=== PATIENT | female | born 1930 | race Caucasian/White ===

== ENCOUNTER 2020-08-02 04:27 | Day surgery (SDC) | payer OTHER ==
[2020-08-01 12:08] VITALS: BMI 24.0
[~2020-08-02 04:27] MED LIST: BUPIVACAINE HCL/PF 0.75% 10 ML VIAL NR ONE; IOHEXOL 180 MG/1 ML ML IJ ONE; LIDOCAINE HCL 1% PRESERVATIVE FREE - 30ML VIAL IJ ONE
[2020-08-02] MEDS ORDERED: BUPIVACAINE HCL/PF 0.5% (5MG/ML) 10 ML VIAL ONE (07:45)
[2020-08-02] MEDS ORDERED: BUPIVACAINE HCL/PF 0.75% 10 ML VIAL ONE (07:45)
[2020-08-02] MEDS ORDERED: LIDOCAINE HCL 1% PRESERVATIVE FREE - 30ML VIAL IJ ONE (10:06)
[2020-08-02] MEDS ORDERED: IOHEXOL 180 MG/1 ML ML IJ ONE (10:10)
[2020-08-02] MEDS ORDERED: BUPIVACAINE HCL/PF 0.75% 10 ML VIAL NR ONE (10:12)
[2020-08-02 11:01] VITALS: BP 139/64; PULSE 89; TEMP 98.1
== END 2020-08-02 10:45 | disposition home or self-care (01) ==
LOC: JASU-SURG 04:27
PROVIDERS: ATTEND Pain Medicine Pain Medicine
PROC: BR16YZZ Fluoroscopy of Lumbar Facet Joint(s) using Other Contrast (ICD-10-PCS; 2020-08-02)
PROC: 3E0T3BZ Introduction of Anesthetic Agent into Peripheral Nerves and Plexi, Percutaneous Approach (ICD-10-PCS; principal; 2020-08-02 10:30)
DX: M47.816 Spondylosis without myelopathy or radiculopathy, lumbar region (principal)
CPT/HCPCS: 76000-TC-FY

== ENCOUNTER 2020-08-20 05:05 | Day surgery (SDC) | payer OTHER ==
[2020-08-19 15:47] VITALS: BMI 23.0
[2020-08-20 13:11] VITALS: BP 118/73; PULSE 86; TEMP 97.6
== END 2020-08-20 12:30 | disposition home or self-care (01) ==
LOC: JASU-SURG 05:05
PROVIDERS: ATTEND Internal Medicine Hematology & Oncology
PROC: 07BH3ZX Excision of Right Inguinal Lymphatic, Percutaneous Approach, Diagnostic (ICD-10-PCS; principal; 2020-08-20)
DX: C83.35 Diffuse large B-cell lymphoma, lymph nodes of inguinal region and lower limb (principal)
CPT/HCPCS: 38505; 71101-TC-LT-FY; 71101-TC-RT-FY; 76942-TC

== ENCOUNTER 2020-08-23 05:53 | Inpatient (IN) | payer OTHER ==
[2020-08-23] MEDS ORDERED: SODIUM CHLORIDE 0.9% 500 ML INFUS.BAG IV ONE (09:19)
[2020-08-23 09:44] LABS: BASO % 0.3 % (0-2.0); EOS % 0.1 % (0-4.5); HEMATOCRIT 40.6 % (32.4-45.2); HEMOGLOBIN 13.5 GM/dL (10.7-15.3); LYMPH % 4.4 % (8-40); MCH 28.7 pg (25.7-33.7); MCHC 33.3 g/dl (32.0-36.0); MEAN CELL VOLUME 86.1 fl (80-96); MEAN PLT VOLUME 8.5 fl (7.5-11.1); MONO % 4.8 % (3.8-10.2); NEUT % 90.4 % (42.8-82.8); PLATELET COUNT 360 10^3/uL (134-434); RBC 4.72 M/mm3 (3.60-5.2); RDW 14.4 % (11.6-15.6); WHITE BLOOD COUNT 13.7 K/mm3 (4.0-10.0)
[2020-08-23 09:59] LABS: CHLORIDE 101 mmol/L (98-107); SODIUM 140 mmol/L (136-145)
[2020-08-23 10:01] LABS: ALBUMIN 3.3 g/dl (3.4-5.0); ANION GAP 10 MMOL/L (8-16); BLOOD UREA NITROGEN 36.3 mg/dL (7-18); CO2 30 mmol/L (21-32)
[2020-08-23 10:02] LABS: GLUCOSE,RANDOM 112 mg/dL (74-106)
[2020-08-23 10:04] LABS: SGOT/AST 25 U/L (15-37); SGPT/ALT 20 U/L (13-61)
[2020-08-23 10:05] LABS: CREATININE 2.2 mg/dL (0.55-1.3)
[2020-08-23 10:06] LABS: BILIRUBIN,TOTAL 0.9 mg/dL (0.2-1); TOT PROT 7.3 g/dl (6.4-8.2)
[2020-08-23 10:07] LABS: ALK PHOS 94 U/L (45-117)
[2020-08-23 10:17] LABS: CALCIUM 14.6 mg/dL (8.5-10.1)
[2020-08-23 10:41] LABS: URINE APPEARANCE CLEAR; URINE BILIRUBIN NEGATIVE (NEGATIVE); URINE COLOR YELLOW; URINE GLUCOSE (UA) NEGATIVE (NEGATIVE); URINE KETONE 15 mg/dl (NEGATIVE); URINE PROTEIN 1+ (NEGATIVE)
[2020-08-23 10:42] LABS: URINE LEUK ESTERASE 1+ (NEGATIVE); URINE NITRITE NEGATIVE (NEGATIVE)
[2020-08-23] MEDS ORDERED: CEFTRIAXONE 1 GM in DEXTROSE 5%-WATER - 100 ML IVPB ONE (11:06)
[2020-08-23] MEDS ORDERED: FUROSEMIDE 40 MG/4 ML INJECTABLE VIAL IVPUSH ONE (11:19)
[2020-08-23] MEDS ORDERED: SODIUM CHLORIDE 1,000 ML IV ONE ×2 (11:19→11:21)
[2020-08-23] MEDS ORDERED: FUROSEMIDE 40 MG/4 ML INJECTABLE VIAL ONE (11:32)
[2020-08-23] MEDS ORDERED: CEFTRIAXONE 1 GM/50 ML BAG ONE (11:32)
[2020-08-23 11:48] LABS: EPI CELLS 2+ /uL (0-25.1); URINE BACTERIA FEW /uL (0-1359)
[2020-08-23 11:54] LABS: LDH 247 U/L (84-246)
[2020-08-23] MEDS ORDERED: ACETAMINOPHEN 325 MG TABLET (FP) PO PRN (13:49)
[2020-08-23] MEDS ORDERED: HEPARIN NA (PORCINE) 5,000 UNITS/ML 1ML VIAL ONE (15:47)
[2020-08-23] MEDS: HEPARIN NA (PORCINE) 5,000 UNITS/ML 1ML VIAL SQ SCH ×2 (15:59→22:03)
[2020-08-23] MEDS ORDERED: SODIUM CHLORIDE 1,000 ML IV SCH ×2 (16:45→17:56)
[2020-08-23] MEDS ORDERED: QUEtiapine FUMARATE 25 MG TABLET PO ONE (17:05)
[2020-08-23] MEDS ORDERED: QUEtiapine FUMARATE 25 MG TABLET ONE (17:21)
[2020-08-23] MEDS ORDERED: CALCITONIN - SALMON SYNTHETIC 400 UNIT/2 ML VIAL SQ SCH (18:15)
[2020-08-23] MEDS: CALCITONIN - SALMON SYNTHETIC 400 UNIT/2 ML VIAL SQ SCH (19:26)
[2020-08-23] MEDS: ROSUVASTATIN CA 5 MG TABLET (FP) PO SCH (22:03)
[2020-08-23] MEDS: amLODIPine BESYLATE 5 MG TABLET (FP) PO SCH (22:03)
[2020-08-24 00:46] VITALS: BMI 20.5
[2020-08-24] MEDS: CALCITONIN - SALMON SYNTHETIC 400 UNIT/2 ML VIAL SQ SCH ×2 (06:04→17:30)
[2020-08-24] MEDS: HEPARIN NA (PORCINE) 5,000 UNITS/ML 1ML VIAL SQ SCH ×3 (06:04→21:47)
[2020-08-24 07:37] LABS: BASO % 0.5 % (0-2.0); EOS % 1.4 % (0-4.5); HEMOGLOBIN 11.6 GM/dL (10.7-15.3); LYMPH % 7.9 % (8-40); MCH 28.6 pg (25.7-33.7); MEAN CELL VOLUME 86.7 fl (80-96); MEAN PLT VOLUME 9.2 fl (7.5-11.1); MONO % 8.3 % (3.8-10.2); NEUT % 81.9 % (42.8-82.8); PLATELET COUNT 318 10^3/uL (134-434); RBC 4.04 M/mm3 (3.60-5.2); RDW 14.4 % (11.6-15.6); WHITE BLOOD COUNT 7.3 K/mm3 (4.0-10.0)
[2020-08-24 07:49] LABS: CHLORIDE 108 mmol/L (98-107); SODIUM 144 mmol/L (136-145)
[2020-08-24 07:58] LABS: ANION GAP 7 MMOL/L (8-16); BILIRUBIN,TOTAL 0.3 mg/dL (0.2-1); BLOOD UREA NITROGEN 26.9 mg/dL (7-18); CO2 30 mmol/L (21-32); GLUCOSE,RANDOM 88 mg/dL (74-106)
[2020-08-24 07:59] LABS: ALK PHOS 67 U/L (45-117)
[2020-08-24 08:00] LABS: HDL CHOLESTEROL 46 mg/dL (40-60); PHOSPHOROUS 2.6 mg/dL (2.5-4.9); SGOT/AST 19 U/L (15-37); SGPT/ALT 13 U/L (13-61); TRIGLYCERIDES 141 mg/dL (0-150)
[2020-08-24 08:01] LABS: CHOLESTEROL 143 mg/dL (50-200); CREATININE 1.6 mg/dL (0.55-1.3); LDL CHOLESTEROL (ONLY SJRH) 73 mg/dL (5-100); TOT PROT 5.5 g/dl (6.4-8.2)
[2020-08-24 08:23] LABS: ALBUMIN 2.5 g/dl (3.4-5.0); CALCIUM 11.6 mg/dL (8.5-10.1)
[2020-08-24] MEDS ORDERED: CALCITONIN - SALMON SYNTHETIC 400 UNIT/2 ML VIAL SQ SCH ×2 (10:30→19:30)
[2020-08-24] MEDS ORDERED: PT OWN MED DRAWER 7, Y5N ONE (16:38)
[2020-08-24] MEDS: DONEPEZIL HCL 5 MG TABLET (FP) PO SCH (17:30)
[2020-08-24] MEDS: ROSUVASTATIN CA 5 MG TABLET (FP) PO SCH (21:47)
[2020-08-24] MEDS: amLODIPine BESYLATE 5 MG TABLET (FP) PO SCH (21:47)
[2020-08-25] MEDS ORDERED: PT OWN MED DRAWER 7, Y5N ONE (05:38)
[2020-08-25] MEDS: HEPARIN NA (PORCINE) 5,000 UNITS/ML 1ML VIAL SQ SCH ×3 (06:14→21:14)
[2020-08-25] MEDS: CALCITONIN - SALMON SYNTHETIC 400 UNIT/2 ML VIAL SQ SCH (06:46)
[2020-08-25] MEDS: DONEPEZIL HCL 5 MG TABLET (FP) PO SCH (17:31)
[2020-08-25] MEDS: amLODIPine BESYLATE 5 MG TABLET (FP) PO SCH (21:14)
[2020-08-25] MEDS: ROSUVASTATIN CA 5 MG TABLET (FP) PO SCH (21:14)
[2020-08-26] MEDS: HEPARIN NA (PORCINE) 5,000 UNITS/ML 1ML VIAL SQ SCH ×3 (05:57→21:15)
[2020-08-26 07:14] LABS: BASO % 0.4 % (0-2.0); EOS % 1.1 % (0-4.5); HEMOGLOBIN 12.7 GM/dL (10.7-15.3); LYMPH % 8.7 % (8-40); MCH 28.8 pg (25.7-33.7); MCHC 33.4 g/dl (32.0-36.0); MEAN CELL VOLUME 86.2 fl (80-96); MEAN PLT VOLUME 8.5 fl (7.5-11.1); MONO % 7.2 % (3.8-10.2); NEUT % 82.6 % (42.8-82.8); PLATELET COUNT 370 10^3/uL (134-434); RBC 4.41 M/mm3 (3.60-5.2); RDW 14.1 % (11.6-15.6); WHITE BLOOD COUNT 9.4 K/mm3 (4.0-10.0)
[2020-08-26 07:33] LABS: CALCIUM 11.2 mg/dL (8.5-10.1)
[2020-08-26 07:34] LABS: ALBUMIN 2.6 g/dl (3.4-5.0); BLOOD UREA NITROGEN 15.7 mg/dL (7-18)
[2020-08-26 07:37] LABS: CREATININE 1.2 mg/dL (0.55-1.3)
[2020-08-26 07:38] LABS: BILIRUBIN,TOTAL 0.3 mg/dL (0.2-1)
[2020-08-26] MEDS: ALLOPURINOL 300 MG TABLET (FP) PO SCH (17:06)
[2020-08-26] MEDS: DONEPEZIL HCL 5 MG TABLET (FP) PO SCH (17:07)
[2020-08-26] MEDS ORDERED: ZOLEDRONIC ACID 4 MG in SODIUM CHLORIDE 100 ML IVPB ONE (18:15)
[2020-08-26] MEDS: amLODIPine BESYLATE 5 MG TABLET (FP) PO SCH (21:16)
[2020-08-26] MEDS: ROSUVASTATIN CA 5 MG TABLET (FP) PO SCH (21:16)
[2020-08-27] MEDS: HEPARIN NA (PORCINE) 5,000 UNITS/ML 1ML VIAL SQ SCH ×3 (06:16→21:42)
[2020-08-27 07:23] LABS: ALBUMIN 2.6 g/dl (3.4-5.0); CALCIUM 11.5 mg/dL (8.5-10.1)
[2020-08-27 07:24] LABS: BLOOD UREA NITROGEN 13.2 mg/dL (7-18)
[2020-08-27 07:27] LABS: CREATININE 1.1 mg/dL (0.55-1.3)
[2020-08-27 07:28] LABS: BILIRUBIN,TOTAL 0.3 mg/dL (0.2-1); TOT PROT 5.8 g/dl (6.4-8.2)
[2020-08-27] MEDS ORDERED: POTASSIUM CHLORIDE TABS 20 MEQ TABLET.ER (FP) PO ONE (08:00)
[2020-08-27] MEDS: ALLOPURINOL 300 MG TABLET (FP) PO SCH (10:07)
[2020-08-27] MEDS ORDERED: SODIUM CHLORIDE 1,000 ML IV SCH (14:15)
[2020-08-27] MEDS: DONEPEZIL HCL 5 MG TABLET (FP) PO SCH (17:48)
[2020-08-27] MEDS: amLODIPine BESYLATE 5 MG TABLET (FP) PO SCH (21:42)
[2020-08-27] MEDS: ROSUVASTATIN CA 5 MG TABLET (FP) PO SCH (21:42)
[2020-08-28] MEDS: HEPARIN NA (PORCINE) 5,000 UNITS/ML 1ML VIAL SQ SCH ×3 (05:23→21:49)
[2020-08-28 07:50] LABS: CALCIUM 10.3 mg/dL (8.5-10.1)
[2020-08-28 07:51] LABS: ALBUMIN 2.6 g/dl (3.4-5.0); BLOOD UREA NITROGEN 9.3 mg/dL (7-18); MAGNESIUM 1.7 mg/dL (1.8-2.4)
[2020-08-28 07:54] LABS: CREATININE 1.1 mg/dL (0.55-1.3); URIC ACID 3.8 mg/dL (2.6-7.2)
[2020-08-28 07:55] LABS: BILIRUBIN,TOTAL 0.3 mg/dL (0.2-1)
[2020-08-28 07:56] LABS: TOT PROT 5.6 g/dl (6.4-8.2)
[2020-08-28] MEDS: ALLOPURINOL 300 MG TABLET (FP) PO SCH (09:50)
[2020-08-28] MEDS ORDERED: MAGNESIUM OXIDE 400 MG TABLET (FP) PO ONE (12:24)
[2020-08-28] MEDS: SODIUM CHLORIDE 1,000 ML IV SCH (12:46)
[2020-08-28] MEDS: DONEPEZIL HCL 5 MG TABLET (FP) PO SCH (18:27)
[2020-08-28] MEDS: amLODIPine BESYLATE 5 MG TABLET (FP) PO SCH (21:49)
[2020-08-28] MEDS: ROSUVASTATIN CA 5 MG TABLET (FP) PO SCH (21:49)
[2020-08-29] MEDS: HEPARIN NA (PORCINE) 5,000 UNITS/ML 1ML VIAL SQ SCH ×3 (06:35→21:28)
[2020-08-29 07:41] LABS: ALBUMIN 2.6 g/dl (3.4-5.0); BLOOD UREA NITROGEN 8.6 mg/dL (7-18); CALCIUM 9.9 mg/dL (8.5-10.1)
[2020-08-29 07:43] LABS: CREATININE 1.1 mg/dL (0.55-1.3)
[2020-08-29 07:45] LABS: BILIRUBIN,TOTAL 0.2 mg/dL (0.2-1); TOT PROT 5.6 g/dl (6.4-8.2)
[2020-08-29] MEDS: ALLOPURINOL 300 MG TABLET (FP) PO SCH (10:07)
[2020-08-29] MEDS: AMINO ACIDS/PROTEIN HYDROLYS 30 ML LIQUID.PKT PO SCH ×2 (10:07→18:15)
[2020-08-29] MEDS: MULTIVITAMINS (DAILY MVI) TABLET (FP) PO SCH (10:07)
[2020-08-29] MEDS: SODIUM CHLORIDE 1,000 ML IV SCH ×2 (13:38→18:16)
[2020-08-29] MEDS: DONEPEZIL HCL 5 MG TABLET (FP) PO SCH (18:16)
[2020-08-29] MEDS: amLODIPine BESYLATE 5 MG TABLET (FP) PO SCH (21:29)
[2020-08-29] MEDS: ROSUVASTATIN CA 5 MG TABLET (FP) PO SCH (21:29)
[2020-08-30] MEDS: HEPARIN NA (PORCINE) 5,000 UNITS/ML 1ML VIAL SQ SCH (05:30)
[2020-08-30 09:18] LABS: ALBUMIN 2.5 g/dl (3.4-5.0); CALCIUM 9.2 mg/dL (8.5-10.1)
[2020-08-30 09:19] LABS: BLOOD UREA NITROGEN 14.5 mg/dL (7-18)
[2020-08-30 09:21] LABS: CREATININE 1.1 mg/dL (0.55-1.3)
[2020-08-30 09:23] LABS: BILIRUBIN,TOTAL 0.3 mg/dL (0.2-1)
[2020-08-30 09:24] LABS: TOT PROT 5.4 g/dl (6.4-8.2)
[2020-08-30] MEDS: AMINO ACIDS/PROTEIN HYDROLYS 30 ML LIQUID.PKT PO SCH ×2 (09:52→19:17)
[2020-08-30] MEDS: MULTIVITAMINS (DAILY MVI) TABLET (FP) PO SCH (09:53)
[2020-08-30] MEDS: ALLOPURINOL 300 MG TABLET (FP) PO SCH (09:53)
[2020-08-30] MEDS: SODIUM CHLORIDE 1,000 ML IV SCH ×2 (10:00→20:00)
[2020-08-30] MEDS: DONEPEZIL HCL 5 MG TABLET (FP) PO SCH (19:17)
[2020-08-30] MEDS: ROSUVASTATIN CA 5 MG TABLET (FP) PO SCH (21:09)
[2020-08-30] MEDS: amLODIPine BESYLATE 5 MG TABLET (FP) PO SCH (21:09)
[2020-08-31] MEDS: AMINO ACIDS/PROTEIN HYDROLYS 30 ML LIQUID.PKT PO SCH ×2 (08:18→18:20)
[2020-08-31] MEDS: ALLOPURINOL 300 MG TABLET (FP) PO SCH (09:21)
[2020-08-31] MEDS: MULTIVITAMINS (DAILY MVI) TABLET (FP) PO SCH (09:21)
[2020-08-31] MEDS: DONEPEZIL HCL 5 MG TABLET (FP) PO SCH (18:20)
[2020-08-31] MEDS: SODIUM CHLORIDE 1,000 ML IV SCH (18:21)
[2020-08-31] MEDS: amLODIPine BESYLATE 5 MG TABLET (FP) PO SCH (21:42)
[2020-08-31] MEDS: ROSUVASTATIN CA 5 MG TABLET (FP) PO SCH (21:42)
[2020-09-01 08:16] LABS: BASO % 0.6 % (0-2.0); EOS % 1.2 % (0-4.5); HEMATOCRIT 33.2 % (32.4-45.2); HEMOGLOBIN 11.4 GM/dL (10.7-15.3); LYMPH % 10.8 % (8-40); MCH 29.3 pg (25.7-33.7); MCHC 34.4 g/dl (32.0-36.0); MEAN CELL VOLUME 85.4 fl (80-96); MEAN PLT VOLUME 8.5 fl (7.5-11.1); MONO % 9.3 % (3.8-10.2); NEUT % 78.1 % (42.8-82.8); PLATELET COUNT 314 10^3/uL (134-434); RBC 3.89 M/mm3 (3.60-5.2); RDW 14.9 % (11.6-15.6); WHITE BLOOD COUNT 7.9 K/mm3 (4.0-10.0)
[2020-09-01 08:28] LABS: ALBUMIN 2.5 g/dl (3.4-5.0); BLOOD UREA NITROGEN 19.8 mg/dL (7-18); CALCIUM 9.5 mg/dL (8.5-10.1)
[2020-09-01 08:31] LABS: CREATININE 1.3 mg/dL (0.55-1.3)
[2020-09-01 08:33] LABS: BILIRUBIN,TOTAL 0.2 mg/dL (0.2-1); TOT PROT 5.5 g/dl (6.4-8.2)
[2020-09-01] MEDS: ALLOPURINOL 300 MG TABLET (FP) PO SCH (10:30)
[2020-09-01] MEDS: AMINO ACIDS/PROTEIN HYDROLYS 30 ML LIQUID.PKT PO SCH ×2 (10:30→18:14)
[2020-09-01] MEDS: MULTIVITAMINS (DAILY MVI) TABLET (FP) PO SCH (10:30)
[2020-09-01] MEDS ORDERED: POTASSIUM CHLORIDE TABS 20 MEQ TABLET.ER (FP) PO ONE (12:03)
[2020-09-01] MEDS: SODIUM CHLORIDE 1,000 ML IV SCH (16:45)
[2020-09-01] MEDS: DONEPEZIL HCL 5 MG TABLET (FP) PO SCH (18:14)
[2020-09-01] MEDS: amLODIPine BESYLATE 5 MG TABLET (FP) PO SCH (21:24)
[2020-09-01] MEDS: ROSUVASTATIN CA 5 MG TABLET (FP) PO SCH (21:24)
[2020-09-02] MEDS: SODIUM CHLORIDE 1,000 ML IV SCH ×2 (03:10→18:23)
[2020-09-02 08:07] LABS: BASO % 0.6 % (0-2.0); EOS % 1.5 % (0-4.5); HEMATOCRIT 33.6 % (32.4-45.2); HEMOGLOBIN 11.4 GM/dL (10.7-15.3); LYMPH % 9.9 % (8-40); MCH 29.3 pg (25.7-33.7); MCHC 33.9 g/dl (32.0-36.0); MEAN CELL VOLUME 86.6 fl (80-96); MEAN PLT VOLUME 8.5 fl (7.5-11.1); MONO % 9.3 % (3.8-10.2); NEUT % 78.7 % (42.8-82.8); PLATELET COUNT 348 10^3/uL (134-434); RBC 3.88 M/mm3 (3.60-5.2); WHITE BLOOD COUNT 8.3 K/mm3 (4.0-10.0)
[2020-09-02 08:19] LABS: ALBUMIN 2.5 g/dl (3.4-5.0); BLOOD UREA NITROGEN 16.2 mg/dL (7-18)
[2020-09-02 08:22] LABS: CREATININE 1.3 mg/dL (0.55-1.3)
[2020-09-02 08:23] LABS: BILIRUBIN,TOTAL 0.3 mg/dL (0.2-1); TOT PROT 5.5 g/dl (6.4-8.2)
[2020-09-02] MEDS: AMINO ACIDS/PROTEIN HYDROLYS 30 ML LIQUID.PKT PO SCH ×2 (10:18→18:19)
[2020-09-02] MEDS: MULTIVITAMINS (DAILY MVI) TABLET (FP) PO SCH (10:18)
[2020-09-02] MEDS: ALLOPURINOL 300 MG TABLET (FP) PO SCH (10:18)
[2020-09-02] MEDS ORDERED: PENICILLIN G BENZATHINE 2,400,000 UNIT/4 ML PFS IM ONE (16:01)
[2020-09-02] MEDS: DONEPEZIL HCL 5 MG TABLET (FP) PO SCH (18:19)
[2020-09-02] MEDS ORDERED: ARTIFICIAL TEARS (POLYVINYL ALCOHOL) OPTH DROPS OU PRN (19:24)
[2020-09-02 21:27] LABS: EPI CELLS >36 /uL (0-25.1); HYALINE CASTS 4 /uL (0-3.1); URINE APPEARANCE CLEAR; URINE BACTERIA 33 /uL (0-1359); URINE BILIRUBIN NEGATIVE (NEGATIVE); URINE COLOR YELLOW; URINE GLUCOSE (UA) 1+ (NEGATIVE); URINE KETONE NEGATIVE (NEGATIVE); URINE LEUK ESTERASE NEGATIVE (NEGATIVE); URINE NITRITE NEGATIVE (NEGATIVE); URINE PROTEIN 2+ (NEGATIVE); URINE RBC 37 /uL (0-23.9); URINE WBC 25 /uL (0-25.8)
[2020-09-02] MEDS: ROSUVASTATIN CA 5 MG TABLET (FP) PO SCH (21:29)
[2020-09-02] MEDS: amLODIPine BESYLATE 5 MG TABLET (FP) PO SCH (21:29)
[2020-09-03] MEDS: AMINO ACIDS/PROTEIN HYDROLYS 30 ML LIQUID.PKT PO SCH ×2 (09:41→17:36)
[2020-09-03] MEDS: MULTIVITAMINS (DAILY MVI) TABLET (FP) PO SCH (09:41)
[2020-09-03] MEDS: ALLOPURINOL 300 MG TABLET (FP) PO SCH (09:42)
[2020-09-03] MEDS: SODIUM CHLORIDE 1,000 ML IV SCH (17:35)
[2020-09-03] MEDS: DONEPEZIL HCL 5 MG TABLET (FP) PO SCH (17:36)
[2020-09-03] MEDS: ROSUVASTATIN CA 5 MG TABLET (FP) PO SCH (21:42)
[2020-09-03] MEDS: amLODIPine BESYLATE 5 MG TABLET (FP) PO SCH (21:42)
[2020-09-04] MEDS: MULTIVITAMINS (DAILY MVI) TABLET (FP) PO SCH (09:30)
[2020-09-04] MEDS: AMINO ACIDS/PROTEIN HYDROLYS 30 ML LIQUID.PKT PO SCH ×2 (09:30→17:30)
[2020-09-04] MEDS: ALLOPURINOL 300 MG TABLET (FP) PO SCH (09:30)
[2020-09-04] MEDS: SODIUM CHLORIDE 1,000 ML IV SCH (17:29)
[2020-09-04] MEDS: DONEPEZIL HCL 5 MG TABLET (FP) PO SCH (17:30)
[2020-09-04] MEDS: amLODIPine BESYLATE 5 MG TABLET (FP) PO SCH (21:24)
[2020-09-04] MEDS: ROSUVASTATIN CA 5 MG TABLET (FP) PO SCH (21:24)
[2020-09-05] MEDS: AMINO ACIDS/PROTEIN HYDROLYS 30 ML LIQUID.PKT PO SCH (08:23)
[2020-09-05] MEDS: ALLOPURINOL 300 MG TABLET (FP) PO SCH (09:58)
[2020-09-05] MEDS: MULTIVITAMINS (DAILY MVI) TABLET (FP) PO SCH (09:58)
[2020-09-05 15:02] VITALS: BP 136/72; PULSE 103; TEMP 98.2
== END 2020-09-05 16:48 | disposition home health service (06) | DRG 840 ==
LOC: JER 05:53 → JERBED 13:52 → J4W 21:02
PROVIDERS: ADMIT Internal Medicine; ATTEND Internal Medicine
DX: C85.10 Unspecified B-cell lymphoma, unspecified site (principal); G93.41 Metabolic encephalopathy; E43 Unspecified severe protein-calorie malnutrition; N17.9 Acute kidney failure, unspecified; S80.12XA Contusion of left lower leg, initial encounter; E78.5 Hyperlipidemia, unspecified; R91.8 Other nonspecific abnormal finding of lung field; F03.90 Unspecified dementia, unspecified severity, without behavioral disturbance, psychotic disturbance, mood disturbance, and anxiety; A53.9 Syphilis, unspecified; M47.896 Other spondylosis, lumbar region; W18.30XA Fall on same level, unspecified, initial encounter; S81.811A Laceration without foreign body, right lower leg, initial encounter; E83.52 Hypercalcemia; D72.829 Elevated white blood cell count, unspecified; R41.82 Altered mental status, unspecified; E87.6 Hypokalemia; L89.152 Pressure ulcer of sacral region, stage 2; I12.9 Hypertensive chronic kidney disease with stage 1 through stage 4 chronic kidney disease, or unspecified chronic kidney disease; N18.9 Chronic kidney disease, unspecified; Y92.098 Other place in other non-institutional residence as the place of occurrence of the external cause; Z68.20 Body mass index [BMI] 20.0-20.9, adult
CPT/HCPCS: 36415; 70450-TC; 71045-TC-FY; 72125-TC; 80053; 80061; 81003; 82310; 82550; 83036; 83615; 83721; 83735; 83970; 84100; 84436; 84439; 84484; 84550; 85025; 87086; 93005; 93010; 93306-TC; 97116-GP; 97161-GP; 99285-25; C9803; J1644; J3489; U0003; U0005

== ENCOUNTER 2020-09-10 12:51 | Day surgery (SDC) | payer OTHER ==
[2020-09-10] MEDS ORDERED: D5-1/2NS+20 MEQ KCL - 20 MEQ/1,000 ML INFUS.BAG IV ONE (13:45)
[2020-09-10] MEDS ORDERED: ZOLEDRONIC ACID 3 MG in SODIUM CHLORIDE 100 ML IVPB ONE (13:45)
[2020-09-10 15:05] LABS: BASO % 0.5 % (0-2.0); EOS % 0.6 % (0-4.5); HEMATOCRIT 35.8 % (32.4-45.2); HEMOGLOBIN 11.9 GM/dL (10.7-15.3); MCH 29.3 pg (25.7-33.7); MCHC 33.2 g/dl (32.0-36.0); MEAN CELL VOLUME 88.2 fl (80-96); MEAN PLT VOLUME 9.1 fl (7.5-11.1); NEUT % 83.9 % (42.8-82.8); PLATELET COUNT 364 10^3/uL (134-434); RBC 4.06 M/mm3 (3.60-5.2); RDW 16.1 % (11.6-15.6); WHITE BLOOD COUNT 12.1 K/mm3 (4.0-10.0)
[2020-09-10 15:24] LABS: ALBUMIN 2.9 g/dl (3.4-5.0); BLOOD UREA NITROGEN 16.2 mg/dL (7-18); MAGNESIUM 2.3 mg/dL (1.8-2.4)
[2020-09-10 15:27] LABS: CREATININE 1.9 mg/dL (0.55-1.3)
[2020-09-10 15:28] LABS: BILIRUBIN,TOTAL 0.4 mg/dL (0.2-1)
[2020-09-10 15:29] LABS: TOT PROT 6.6 g/dl (6.4-8.2)
[2020-09-10 15:39] LABS: CALCIUM 11.3 mg/dL (8.5-10.1)
[2020-09-10] MEDS ORDERED: DENOSUMAB 120 MG/1.7 ML VIAL SQ ONE (17:00)
[2020-09-10 18:42] VITALS: TEMP 97.9
[2020-09-10 18:46] VITALS: BP 102/35; PULSE 84
== END 2020-09-10 18:46 | disposition home or self-care (01) ==
LOC: JONCNONCHE 12:51 → JONCCHEMO 12:51
PROVIDERS: ATTEND Internal Medicine Hematology & Oncology
PROC: 3E013GC Introduction of Other Therapeutic Substance into Subcutaneous Tissue, Percutaneous Approach (ICD-10-PCS; principal; 2020-09-10)
PROC: 3E0337Z Introduction of Electrolytic and Water Balance Substance into Peripheral Vein, Percutaneous Approach (ICD-10-PCS; 2020-09-10)
DX: C83.38 Diffuse large B-cell lymphoma, lymph nodes of multiple sites (principal); Z76.89 Persons encountering health services in other specified circumstances
CPT/HCPCS: 36415; 80053; 83735; 85025; 96360; 96361; 96372; J0897

== ENCOUNTER 2020-09-11 09:02 | Day surgery (SDC) | payer OTHER ==
[2020-09-11] MEDS ORDERED: D5-1/2NS+20 MEQ KCL - 20 MEQ/1,000 ML INFUS.BAG IV ONE (09:45)
[2020-09-11 12:47] LABS: CALCIUM 11.2 mg/dL (8.5-10.1); MAGNESIUM 2.1 mg/dL (1.8-2.4)
[2020-09-11 12:48] LABS: ALBUMIN 2.8 g/dl (3.4-5.0); BLOOD UREA NITROGEN 13.7 mg/dL (7-18)
[2020-09-11 12:49] LABS: URIC ACID 1.7 mg/dL (2.6-7.2)
[2020-09-11 12:50] LABS: CREATININE 1.8 mg/dL (0.55-1.3)
[2020-09-11 12:51] LABS: PHOSPHOROUS 2.1 mg/dL (2.5-4.9)
[2020-09-11 12:53] LABS: BILIRUBIN,TOTAL 0.4 mg/dL (0.2-1)
[2020-09-11 12:54] LABS: TOT PROT 6.2 g/dl (6.4-8.2)
[2020-09-11 16:44] VITALS: TEMP 98.5
[2020-09-11 16:46] VITALS: BP 113/49; PULSE 92
== END 2020-09-11 16:10 | disposition home or self-care (01) ==
LOC: JONCCHEMO 09:02
PROVIDERS: ATTEND Internal Medicine Hematology & Oncology
PROC: 3E0337Z Introduction of Electrolytic and Water Balance Substance into Peripheral Vein, Percutaneous Approach (ICD-10-PCS; principal; 2020-09-11)
DX: C83.38 Diffuse large B-cell lymphoma, lymph nodes of multiple sites (principal); Z76.89 Persons encountering health services in other specified circumstances
CPT/HCPCS: 36415; 80053; 83615; 83735; 84100; 84550; 96360; 96361

== ENCOUNTER 2020-09-16 13:17 | Inpatient (IN) | payer OTHER ==
[2020-09-16] MEDS ORDERED: SODIUM CHLORIDE 0.9% 1000 ML INFUS.BAG IV ONE (16:19)
[2020-09-16] MEDS ORDERED: ACETAMINOPHEN 1000 MG/100 ML VIAL (NON FORMULARY) IVPB ONE (16:19)
[2020-09-16] MEDS ORDERED: ACETAMINOPHEN INJECTION 100 ML IVPB ONE (16:23)
[2020-09-16 16:43] LABS: BASO % 0.5 % (0-2.0); EOS % 1.9 % (0-4.5); HEMOGLOBIN 12.3 GM/dL (10.7-15.3); LYMPH % 6.4 % (8-40); MCH 29.4 pg (25.7-33.7); MCHC 34.1 g/dl (32.0-36.0); MEAN CELL VOLUME 86.3 fl (80-96); MEAN PLT VOLUME 9.1 fl (7.5-11.1); MONO % 6.1 % (3.8-10.2); NEUT % 85.1 % (42.8-82.8); PLATELET COUNT 360 10^3/uL (134-434); RBC 4.18 M/mm3 (3.60-5.2); WHITE BLOOD COUNT 10.2 K/mm3 (4.0-10.0)
[2020-09-16 17:04] LABS: CHLORIDE 101 mmol/L (98-107); SODIUM 140 mmol/L (136-145)
[2020-09-16 17:05] LABS: ALBUMIN 2.7 g/dl (3.4-5.0); ANION GAP 8 MMOL/L (8-16); BLOOD UREA NITROGEN 18.6 mg/dL (7-18); CALCIUM 11.1 mg/dL (8.5-10.1); CO2 30 mmol/L (21-32)
[2020-09-16 17:06] LABS: GLUCOSE,RANDOM 90 mg/dL (74-106)
[2020-09-16 17:09] LABS: CREATININE 1.7 mg/dL (0.55-1.3); SGOT/AST 27 U/L (15-37); SGPT/ALT 13 U/L (13-61)
[2020-09-16 17:10] LABS: BILIRUBIN,TOTAL 0.5 mg/dL (0.2-1); TOT PROT 6.1 g/dl (6.4-8.2)
[2020-09-16 17:12] LABS: ALK PHOS 79 U/L (45-117)
[2020-09-16 18:40] LABS: EPI CELLS 20 /uL (0-25.1); HYALINE CASTS 6 /uL (0-3.1); PH,URINE 6.5 (5.0-8.0); URINE APPEARANCE CLEAR; URINE BACTERIA 13 /uL (0-1359); URINE BILIRUBIN NEGATIVE (NEGATIVE); URINE COLOR YELLOW; URINE GLUCOSE (UA) NEGATIVE (NEGATIVE); URINE KETONE TRACE (NEGATIVE); URINE LEUK ESTERASE NEGATIVE (NEGATIVE); URINE NITRITE NEGATIVE (NEGATIVE); URINE PROTEIN 2+ (NEGATIVE); URINE WBC 8 /uL (0-25.8)
[2020-09-16] MEDS ORDERED: DEXTROSE 5%-0.45% SALINE 1,000 ML IV SCH (22:45)
[2020-09-17 00:54] VITALS: BMI 22.4
[2020-09-17 08:25] LABS: BASO % 0.4 % (0-2.0); EOS % 3.8 % (0-4.5); HEMATOCRIT 33.2 % (32.4-45.2); HEMOGLOBIN 11.3 GM/dL (10.7-15.3); LYMPH % 5.7 % (8-40); MCH 29.3 pg (25.7-33.7); MEAN PLT VOLUME 8.2 fl (7.5-11.1); MONO % 6.3 % (3.8-10.2); NEUT % 83.8 % (42.8-82.8); PLATELET COUNT 323 10^3/uL (134-434); RBC 3.86 M/mm3 (3.60-5.2); RDW 15.3 % (11.6-15.6); WHITE BLOOD COUNT 8.9 K/mm3 (4.0-10.0)
[2020-09-17 08:35] LABS: CHLORIDE 105 mmol/L (98-107); SODIUM 139 mmol/L (136-145)
[2020-09-17 08:41] LABS: ALBUMIN 2.3 g/dl (3.4-5.0); ANION GAP 5 MMOL/L (8-16); BLOOD UREA NITROGEN 16.7 mg/dL (7-18); CO2 29 mmol/L (21-32); GLUCOSE,RANDOM 111 mg/dL (74-106)
[2020-09-17 08:44] LABS: SGOT/AST 15 U/L (15-37); SGPT/ALT 11 U/L (13-61)
[2020-09-17 08:45] LABS: BILIRUBIN,TOTAL 0.3 mg/dL (0.2-1); CREATININE 1.6 mg/dL (0.55-1.3); TOT PROT 5.2 g/dl (6.4-8.2)
[2020-09-17 08:46] LABS: ALK PHOS 64 U/L (45-117)
[2020-09-17] MEDS: ALLOPURINOL 300 MG TABLET (FP) PO SCH (10:53)
[2020-09-17] MEDS: methylPREDNISolone NA SUCC 40 MG/1 ML VIAL IVPUSH SCH ×2 (10:53→20:50)
[2020-09-17] MEDS: DONEPEZIL HCL 5 MG TABLET (FP) PO SCH (10:54)
[2020-09-17] MEDS ORDERED: SODIUM CHLORIDE 1,000 ML IV SCH (14:45)
[2020-09-17] MEDS: ENOXAPARIN NA (PORCINE) 30 MG/0.3 ML DISP.SYRIN SQ SCH (20:50)
[2020-09-17] MEDS: amLODIPine BESYLATE 2.5 MG TABLET (FP) PO SCH ×2 (21:22→21:27)
[2020-09-17] MEDS: GABAPENTIN 300 MG CAPSULE PO SCH (21:22)
[2020-09-17] MEDS: INSULIN SLIDING SCALE (NOVOLOG) 1 VIAL SQ SCH (21:22)
[2020-09-17] MEDS: ROSUVASTATIN CA 5 MG TABLET (FP) PO SCH (21:22)
[2020-09-18] MEDS: methylPREDNISolone NA SUCC 40 MG/1 ML VIAL IVPUSH SCH ×3 (02:15→17:05)
[2020-09-18] MEDS: INSULIN SLIDING SCALE (NOVOLOG) 1 VIAL SQ SCH ×4 (06:22→22:02)
[2020-09-18] MEDS: ENOXAPARIN NA (PORCINE) 30 MG/0.3 ML DISP.SYRIN SQ SCH (09:44)
[2020-09-18] MEDS: DONEPEZIL HCL 5 MG TABLET (FP) PO SCH (09:45)
[2020-09-18] MEDS: ALLOPURINOL 300 MG TABLET (FP) PO SCH (09:45)
[2020-09-18] MEDS: diphenhydrAMINE HCL 25 MG CAPSULE (FP) PO PRN (15:13)
[2020-09-18] MEDS: GABAPENTIN 300 MG CAPSULE PO SCH (21:23)
[2020-09-18] MEDS: ROSUVASTATIN CA 5 MG TABLET (FP) PO SCH (21:23)
[2020-09-18] MEDS: amLODIPine BESYLATE 2.5 MG TABLET (FP) PO SCH (21:23)
[2020-09-19] MEDS: methylPREDNISolone NA SUCC 40 MG/1 ML VIAL IVPUSH SCH ×4 (02:01→21:35)
[2020-09-19] MEDS: INSULIN SLIDING SCALE (NOVOLOG) 1 VIAL SQ SCH ×4 (06:04→21:34)
[2020-09-19 07:51] LABS: BASO % 0.2 % (0-2.0); HEMATOCRIT 34.2 % (32.4-45.2); HEMOGLOBIN 11.4 GM/dL (10.7-15.3); LYMPH % 4.4 % (8-40); MCH 28.9 pg (25.7-33.7); MCHC 33.4 g/dl (32.0-36.0); MEAN CELL VOLUME 86.4 fl (80-96); MEAN PLT VOLUME 8.6 fl (7.5-11.1); MONO % 1.8 % (3.8-10.2); NEUT % 93.6 % (42.8-82.8); PLATELET COUNT 405 10^3/uL (134-434); RBC 3.96 M/mm3 (3.60-5.2); RDW 15.8 % (11.6-15.6); WHITE BLOOD COUNT 21.3 K/mm3 (4.0-10.0)
[2020-09-19 08:02] LABS: ALBUMIN 2.5 g/dl (3.4-5.0); BLOOD UREA NITROGEN 20.2 mg/dL (7-18); CALCIUM 9.7 mg/dL (8.5-10.1)
[2020-09-19 08:05] LABS: CREATININE 1.5 mg/dL (0.55-1.3)
[2020-09-19 08:06] LABS: BILIRUBIN,TOTAL 0.2 mg/dL (0.2-1); TOT PROT 5.6 g/dl (6.4-8.2)
[2020-09-19 10:08] LABS: PLATELET ESTIMATE ADEQUATE
[2020-09-19] MEDS: ENOXAPARIN NA (PORCINE) 30 MG/0.3 ML DISP.SYRIN SQ SCH (10:34)
[2020-09-19] MEDS: ALLOPURINOL 300 MG TABLET (FP) PO SCH (10:34)
[2020-09-19] MEDS: DONEPEZIL HCL 5 MG TABLET (FP) PO SCH (10:34)
[2020-09-19] MEDS: diphenhydrAMINE HCL 25 MG CAPSULE (FP) PO PRN ×2 (13:44→21:33)
[2020-09-19] MEDS ORDERED: SODIUM CHLORIDE 0.45% 1,000 ML IV SCH (15:15)
[2020-09-19] MEDS ORDERED: INSULIN (NOVOLOG) ASPART 100 UNITS/ML 10ML VIAL ONE (20:48)
[2020-09-19] MEDS: GABAPENTIN 300 MG CAPSULE PO SCH (21:33)
[2020-09-19] MEDS: amLODIPine BESYLATE 2.5 MG TABLET (FP) PO SCH (21:33)
[2020-09-19] MEDS: ROSUVASTATIN CA 5 MG TABLET (FP) PO SCH (21:33)
[2020-09-20] MEDS: INSULIN SLIDING SCALE (NOVOLOG) 1 VIAL SQ SCH ×4 (06:06→21:57)
[2020-09-20] MEDS: ALLOPURINOL 300 MG TABLET (FP) PO SCH (09:37)
[2020-09-20] MEDS: methylPREDNISolone NA SUCC 40 MG/1 ML VIAL IVPUSH SCH (09:37)
[2020-09-20] MEDS: DONEPEZIL HCL 5 MG TABLET (FP) PO SCH (09:37)
[2020-09-20] MEDS: diphenhydrAMINE HCL 25 MG CAPSULE (FP) PO PRN (09:37)
[2020-09-20] MEDS: ENOXAPARIN NA (PORCINE) 30 MG/0.3 ML DISP.SYRIN SQ SCH (09:37)
[2020-09-20] MEDS: predniSONE 10 MG TABLET (UD) PO SCH (17:05)
[2020-09-20] MEDS: amLODIPine BESYLATE 2.5 MG TABLET (FP) PO SCH (21:54)
[2020-09-20] MEDS: GABAPENTIN 300 MG CAPSULE PO SCH (21:54)
[2020-09-20] MEDS: ROSUVASTATIN CA 5 MG TABLET (FP) PO SCH (21:54)
[2020-09-21] MEDS: INSULIN SLIDING SCALE (NOVOLOG) 1 VIAL SQ SCH ×4 (08:04→21:15)
[2020-09-21] MEDS: predniSONE 10 MG TABLET (UD) PO SCH (09:52)
[2020-09-21] MEDS: ALLOPURINOL 300 MG TABLET (FP) PO SCH (09:52)
[2020-09-21] MEDS: DONEPEZIL HCL 5 MG TABLET (FP) PO SCH (09:52)
[2020-09-21] MEDS: ENOXAPARIN NA (PORCINE) 30 MG/0.3 ML DISP.SYRIN SQ SCH (09:52)
[2020-09-21] MEDS: diphenhydrAMINE HCL 25 MG CAPSULE (FP) PO PRN (09:53)
[2020-09-21 10:04] LABS: BLOOD UREA NITROGEN 28.1 mg/dL (7-18); CALCIUM 8.9 mg/dL (8.5-10.1)
[2020-09-21 10:08] LABS: CREATININE 1.3 mg/dL (0.55-1.3)
[2020-09-21] MEDS ORDERED: INSULIN (NOVOLOG) ASPART 100 UNITS/ML 10ML VIAL ONE ×2 (12:00→20:55)
[2020-09-21] MEDS: GABAPENTIN 300 MG CAPSULE PO SCH (21:15)
[2020-09-21] MEDS: ROSUVASTATIN CA 5 MG TABLET (FP) PO SCH (21:15)
[2020-09-21] MEDS: amLODIPine BESYLATE 2.5 MG TABLET (FP) PO SCH (21:18)
[2020-09-22] MEDS: INSULIN SLIDING SCALE (NOVOLOG) 1 VIAL SQ SCH ×4 (07:02→21:31)
[2020-09-22] MEDS ORDERED: PT OWN MED DRAWER 7, Y5N ONE (09:24)
[2020-09-22] MEDS: ENOXAPARIN NA (PORCINE) 30 MG/0.3 ML DISP.SYRIN SQ SCH (09:27)
[2020-09-22] MEDS: ALLOPURINOL 300 MG TABLET (FP) PO SCH (09:27)
[2020-09-22] MEDS: DONEPEZIL HCL 5 MG TABLET (FP) PO SCH (09:27)
[2020-09-22] MEDS: predniSONE 10 MG TABLET (UD) PO SCH (09:27)
[2020-09-22] MEDS ORDERED: INSULIN (NOVOLOG) ASPART 100 UNITS/ML 10ML VIAL ONE (21:23)
[2020-09-22] MEDS: GABAPENTIN 300 MG CAPSULE PO SCH (21:31)
[2020-09-22] MEDS: ROSUVASTATIN CA 5 MG TABLET (FP) PO SCH (21:31)
[2020-09-22] MEDS: amLODIPine BESYLATE 2.5 MG TABLET (FP) PO SCH (21:31)
[2020-09-23] MEDS: INSULIN SLIDING SCALE (NOVOLOG) 1 VIAL SQ SCH ×2 (06:40→10:25)
[2020-09-23] MEDS: predniSONE 10 MG TABLET (UD) PO SCH (10:04)
[2020-09-23] MEDS: ALLOPURINOL 300 MG TABLET (FP) PO SCH (10:04)
[2020-09-23] MEDS: DONEPEZIL HCL 5 MG TABLET (FP) PO SCH (10:04)
[2020-09-23] MEDS: ENOXAPARIN NA (PORCINE) 30 MG/0.3 ML DISP.SYRIN SQ SCH (10:08)
[2020-09-23 13:51] VITALS: BP 109/49; PULSE 85; TEMP 98.6
[2020-09-23 15:39] LABS: BASO % 0.1 % (0-2.0); EOS % 0.2 % (0-4.5); HEMOGLOBIN 12.6 GM/dL (10.7-15.3); LYMPH % 7.6 % (8-40); MCH 29.1 pg (25.7-33.7); MCHC 33.1 g/dl (32.0-36.0); MEAN CELL VOLUME 87.9 fl (80-96); MEAN PLT VOLUME 7.7 fl (7.5-11.1); MONO % 3.4 % (3.8-10.2); NEUT % 88.7 % (42.8-82.8); PLATELET COUNT 423 10^3/uL (134-434); RBC 4.32 M/mm3 (3.60-5.2); RDW 16.5 % (11.6-15.6); WHITE BLOOD COUNT 13.5 K/mm3 (4.0-10.0)
[2020-09-23 15:59] LABS: BLOOD UREA NITROGEN 23.3 mg/dL (7-18)
[2020-09-23 16:00] LABS: ALBUMIN 2.7 g/dl (3.4-5.0)
[2020-09-23 16:02] LABS: URIC ACID 1.3 mg/dL (2.6-7.2)
[2020-09-23 16:03] LABS: CREATININE 1.3 mg/dL (0.55-1.3)
[2020-09-23 16:04] LABS: BILIRUBIN,TOTAL 0.2 mg/dL (0.2-1); TOT PROT 5.8 g/dl (6.4-8.2)
[2020-09-23 18:09] LABS: ANISOCYTOSIS 0; MACROCYTOSIS 0; OVALOCYTE 1+; PLATELET ESTIMATE NORMAL
== END 2020-09-23 15:42 | disposition home health service (06) | DRG 312 ==
LOC: JER 13:17 → JERBED 17:14 → J7W 23:33
PROVIDERS: ADMIT Internal Medicine; ATTEND Internal Medicine
DX: R55 Syncope and collapse (principal); N17.9 Acute kidney failure, unspecified; C85.10 Unspecified B-cell lymphoma, unspecified site; I10 Essential (primary) hypertension; E78.5 Hyperlipidemia, unspecified; E83.52 Hypercalcemia; A51.5 Early syphilis, latent; R21 Rash and other nonspecific skin eruption; F03.90 Unspecified dementia, unspecified severity, without behavioral disturbance, psychotic disturbance, mood disturbance, and anxiety; R73.03 Prediabetes; E86.0 Dehydration; Z88.0 Allergy status to penicillin
CPT/HCPCS: 36415; 70450-TC; 71045-TC-FY; 80048; 80053; 81003; 82550; 82962; 83615; 84484; 84550; 85025; 87086; 93005; 93010; 97116-GP; 97161-GP; 99285-25; C9803; J0131; U0003; U0005

== ENCOUNTER 2020-09-30 13:44 | Inpatient (IN) | payer OTHER ==
[2020-09-30 15:17] LABS: BASO % 0.2 % (0-2.0); EOS % 0.5 % (0-4.5); HEMOGLOBIN 12.8 GM/dL (10.7-15.3); LYMPH % 8.3 % (8-40); MCH 29.9 pg (25.7-33.7); MCHC 33.6 g/dl (32.0-36.0); MEAN CELL VOLUME 88.9 fl (80-96); MEAN PLT VOLUME 8.2 fl (7.5-11.1); MONO % 8.4 % (3.8-10.2); NEUT % 82.6 % (42.8-82.8); PLATELET COUNT 297 10^3/uL (134-434); RBC 4.27 M/mm3 (3.60-5.2); RDW 17.6 % (11.6-15.6)
[2020-09-30 15:25] LABS: INR 0.87 (0.83-1.09); PROTHROMBIN TIME (PATIENT) 10.7 SEC (9.7-13.0)
[2020-09-30 15:28] LABS: ACTIVATED PTT 20.3 SECONDS (25.2-36.5)
[2020-09-30 15:37] LABS: CHLORIDE 104 mmol/L (98-107); SODIUM 139 mmol/L (136-145)
[2020-09-30 15:39] LABS: CALCIUM 9.5 mg/dL (8.5-10.1)
[2020-09-30 15:40] LABS: ALBUMIN 2.9 g/dl (3.4-5.0); ANION GAP 8 MMOL/L (8-16); BLOOD UREA NITROGEN 29.6 mg/dL (7-18); CO2 27 mmol/L (21-32); GLUCOSE,RANDOM 114 mg/dL (74-106); MAGNESIUM 2.3 mg/dL (1.8-2.4)
[2020-09-30 15:43] LABS: CREATININE 1.3 mg/dL (0.55-1.3); SGOT/AST 41 U/L (15-37); SGPT/ALT 24 U/L (13-61)
[2020-09-30 15:44] LABS: BILIRUBIN,TOTAL 0.4 mg/dL (0.2-1)
[2020-09-30 15:45] LABS: TOT PROT 6.2 g/dl (6.4-8.2)
[2020-09-30 15:46] LABS: ALK PHOS 56 U/L (45-117)
[2020-09-30] MEDS ORDERED: ENOXAPARIN NA (PORCINE) 40 MG/0.4 ML DISP.SYRIN SQ ONE (16:31)
[2020-09-30] MEDS ORDERED: ENOXAPARIN NA (PORCINE) 60 MG/0.6 ML DISP.SYRIN SQ ONE (16:50)
[2020-09-30] MEDS ORDERED: ENOXAPARIN NA (PORCINE) 60 MG/0.6 ML DISP.SYRIN SQ SCH (21:30)
[2020-09-30] MEDS ORDERED: amLODIPine BESYLATE 2.5 MG TABLET (FP) ONE (22:45)
[2020-09-30] MEDS ORDERED: PT OWN MED DRAWER 7, Y5N ONE (22:46)
[2020-09-30] MEDS: GABAPENTIN 300 MG CAPSULE PO SCH (23:43)
[2020-09-30] MEDS: amLODIPine BESYLATE 5 MG TABLET (FP) PO SCH (23:44)
[2020-10-01] MEDS: ROSUVASTATIN CA 5 MG TABLET (FP) PO SCH ×2 (00:07→23:30)
[2020-10-01 08:22] LABS: BASO % 0.3 % (0-2.0); EOS % 0.4 % (0-4.5); HEMATOCRIT 41.1 % (32.4-45.2); HEMOGLOBIN 13.5 GM/dL (10.7-15.3); MCH 29.6 pg (25.7-33.7); MCHC 32.8 g/dl (32.0-36.0); MONO % 6.1 % (3.8-10.2); NEUT % 79.2 % (42.8-82.8); PLATELET COUNT 332 10^3/uL (134-434); RBC 4.56 M/mm3 (3.60-5.2); RDW 17.9 % (11.6-15.6); WHITE BLOOD COUNT 8.5 K/mm3 (4.0-10.0)
[2020-10-01 08:43] LABS: ALBUMIN 3.1 g/dl (3.4-5.0); CALCIUM 9.4 mg/dL (8.5-10.1)
[2020-10-01 08:44] LABS: BLOOD UREA NITROGEN 26.7 mg/dL (7-18)
[2020-10-01 08:47] LABS: CREATININE 1.4 mg/dL (0.55-1.3)
[2020-10-01 08:48] LABS: BILIRUBIN,TOTAL 0.5 mg/dL (0.2-1); TOT PROT 6.3 g/dl (6.4-8.2)
[2020-10-01] MEDS ORDERED: DONEPEZIL HCL 5 MG TABLET (FP) ONE (10:28)
[2020-10-01] MEDS: DONEPEZIL HCL 5 MG TABLET (FP) PO SCH (10:32)
[2020-10-01] MEDS: ALLOPURINOL 300 MG TABLET (FP) PO SCH (10:32)
[2020-10-01 15:38] LABS: EPI CELLS 2 /uL (0-25.1); HYALINE CASTS 0 /uL (0-3.1); URINE APPEARANCE CLEAR; URINE BACTERIA 1 /uL (0-1359); URINE BILIRUBIN NEGATIVE (NEGATIVE); URINE COLOR YELLOW; URINE GLUCOSE (UA) NEGATIVE (NEGATIVE); URINE KETONE NEGATIVE (NEGATIVE); URINE LEUK ESTERASE NEGATIVE (NEGATIVE); URINE NITRITE NEGATIVE (NEGATIVE); URINE PROTEIN 1+ (NEGATIVE); URINE WBC 1 /uL (0-25.8)
[2020-10-01] MEDS: SODIUM CHLORIDE 1,000 ML IV SCH (18:26)
[2020-10-01 19:21] LABS: URINE RBC 87.1 /uL (0-23.9)
[2020-10-01] MEDS ORDERED: ENOXAPARIN NA (PORCINE) 60 MG/0.6 ML DISP.SYRIN SQ ONE (23:15)
[2020-10-01] MEDS: GABAPENTIN 300 MG CAPSULE PO SCH (23:30)
[2020-10-01] MEDS: amLODIPine BESYLATE 5 MG TABLET (FP) PO SCH (23:30)
[2020-10-02] MEDS: SODIUM CHLORIDE 1,000 ML IV SCH ×2 (06:09→18:35)
[2020-10-02 09:04] VITALS: BMI 22.6
[2020-10-02] MEDS ORDERED: PT OWN MED DRAWER 7, Y5N ONE (09:30)
[2020-10-02] MEDS ORDERED: ENOXAPARIN NA (PORCINE) 60 MG/0.6 ML DISP.SYRIN SQ SCH ×2 (10:00→10:30)
[2020-10-02] MEDS: ALLOPURINOL 300 MG TABLET (FP) PO SCH (10:42)
[2020-10-02] MEDS: DONEPEZIL HCL 5 MG TABLET (FP) PO SCH (10:42)
[2020-10-02] MEDS: BACITRACIN 15 GM TUBE TOPICAL OINTMENT TP SCH (18:33)
[2020-10-02] MEDS: ACETAMINOPHEN 325 MG TABLET (FP) PO PRN (19:09)
[2020-10-02] MEDS ORDERED: ENOXAPARIN NA (PORCINE) 60 MG/0.6 ML DISP.SYRIN SQ ONE (22:00)
[2020-10-02] MEDS: ROSUVASTATIN CA 5 MG TABLET (FP) PO SCH (22:58)
[2020-10-02] MEDS: GABAPENTIN 300 MG CAPSULE PO SCH (22:58)
[2020-10-02] MEDS: amLODIPine BESYLATE 5 MG TABLET (FP) PO SCH (22:58)
[2020-10-03] MEDS: ACETAMINOPHEN 325 MG TABLET (FP) PO PRN (02:50)
[2020-10-03] MEDS: ENOXAPARIN NA (PORCINE) 60 MG/0.6 ML DISP.SYRIN SQ SCH ×3 (07:16→21:58)
[2020-10-03 09:11] LABS: BASO % 0.7 % (0-2.0); EOS % 1.6 % (0-4.5); HEMOGLOBIN 10.9 GM/dL (10.7-15.3); LYMPH % 12.4 % (8-40); MCH 29.8 pg (25.7-33.7); MCHC 32.9 g/dl (32.0-36.0); MEAN CELL VOLUME 90.5 fl (80-96); MEAN PLT VOLUME 8.7 fl (7.5-11.1); MONO % 8.2 % (3.8-10.2); NEUT % 77.1 % (42.8-82.8); PLATELET COUNT 216 10^3/uL (134-434); RBC 3.65 M/mm3 (3.60-5.2); RDW 17.7 % (11.6-15.6); WHITE BLOOD COUNT 5.5 K/mm3 (4.0-10.0)
[2020-10-03] MEDS ORDERED: ENOXAPARIN NA (PORCINE) 60 MG/0.6 ML DISP.SYRIN SQ SCH (10:00)
[2020-10-03 10:13] LABS: BLOOD UREA NITROGEN 12.6 mg/dL (7-18)
[2020-10-03 10:16] LABS: BILIRUBIN,TOTAL 0.2 mg/dL (0.2-1); TOT PROT 5.2 g/dl (6.4-8.2)
[2020-10-03 10:17] LABS: CREATININE 1.1 mg/dL (0.55-1.3)
[2020-10-03 10:18] LABS: ALBUMIN 2.3 g/dl (3.4-5.0); CALCIUM 7.9 mg/dL (8.5-10.1)
[2020-10-03] MEDS ORDERED: PT OWN MED DRAWER 7, Y5N ONE (10:26)
[2020-10-03] MEDS: DONEPEZIL HCL 5 MG TABLET (FP) PO SCH (10:32)
[2020-10-03] MEDS: ALLOPURINOL 300 MG TABLET (FP) PO SCH (10:32)
[2020-10-03] MEDS: BACITRACIN 15 GM TUBE TOPICAL OINTMENT TP SCH (10:33)
[2020-10-03] MEDS ORDERED: ACETAMINOPHEN 325 MG TABLET (FP) PO PRN (20:02)
[2020-10-03] MEDS: GABAPENTIN 300 MG CAPSULE PO SCH (21:57)
[2020-10-03] MEDS: ROSUVASTATIN CA 5 MG TABLET (FP) PO SCH (21:57)
[2020-10-03] MEDS: amLODIPine BESYLATE 2.5 MG TABLET (FP) PO SCH (21:57)
[2020-10-03] MEDS: SODIUM CHLORIDE 1,000 ML IV SCH (21:58)
[2020-10-04] MEDS: ENOXAPARIN NA (PORCINE) 60 MG/0.6 ML DISP.SYRIN SQ SCH ×2 (09:21→21:10)
[2020-10-04] MEDS: BACITRACIN 15 GM TUBE TOPICAL OINTMENT TP SCH (09:21)
[2020-10-04] MEDS: DONEPEZIL HCL 5 MG TABLET (FP) PO SCH (09:21)
[2020-10-04] MEDS ORDERED: PT OWN MED DRAWER 7, Y5N ONE (10:05)
[2020-10-04] MEDS: ALLOPURINOL 300 MG TABLET (FP) PO SCH (10:06)
[2020-10-04] MEDS: SODIUM CHLORIDE 1,000 ML IV SCH (15:26)
[2020-10-04] MEDS ORDERED: SODIUM CHLORIDE 0.45% 1,000 ML IV SCH (17:15)
[2020-10-04] MEDS: GABAPENTIN 300 MG CAPSULE PO SCH (21:10)
[2020-10-04] MEDS: amLODIPine BESYLATE 2.5 MG TABLET (FP) PO SCH (21:10)
[2020-10-04] MEDS: ROSUVASTATIN CA 5 MG TABLET (FP) PO SCH (21:10)
[2020-10-05 09:37] LABS: BASO % 1.1 % (0-2.0); EOS % 1.6 % (0-4.5); HEMATOCRIT 29.6 % (32.4-45.2); HEMOGLOBIN 9.9 GM/dL (10.7-15.3); LYMPH % 9.7 % (8-40); MCH 29.7 pg (25.7-33.7); MCHC 33.6 g/dl (32.0-36.0); MEAN CELL VOLUME 88.4 fl (80-96); MEAN PLT VOLUME 8.4 fl (7.5-11.1); MONO % 7.6 % (3.8-10.2); PLATELET COUNT 191 10^3/uL (134-434); RBC 3.35 M/mm3 (3.60-5.2); RDW 17.3 % (11.6-15.6); WHITE BLOOD COUNT 5.4 K/mm3 (4.0-10.0)
[2020-10-05] MEDS ORDERED: PT OWN MED DRAWER 7, Y5N ONE (10:03)
[2020-10-05 10:12] LABS: ALBUMIN 2.2 g/dl (3.4-5.0); BLOOD UREA NITROGEN 6.2 mg/dL (7-18); CALCIUM 7.6 mg/dL (8.5-10.1)
[2020-10-05 10:14] LABS: CREATININE 1.2 mg/dL (0.55-1.3)
[2020-10-05 10:15] LABS: BILIRUBIN,TOTAL 0.5 mg/dL (0.2-1); TOT PROT 4.8 g/dl (6.4-8.2)
[2020-10-05] MEDS: ENOXAPARIN NA (PORCINE) 60 MG/0.6 ML DISP.SYRIN SQ SCH (10:52)
[2020-10-05] MEDS: ALLOPURINOL 300 MG TABLET (FP) PO SCH (10:53)
[2020-10-05] MEDS: BACITRACIN 15 GM TUBE TOPICAL OINTMENT TP SCH (10:53)
[2020-10-05] MEDS: DONEPEZIL HCL 5 MG TABLET (FP) PO SCH (10:53)
[2020-10-05 14:24] VITALS: BP 110/65; PULSE 94; TEMP 98.9
== END 2020-10-05 14:45 | disposition home health service (06) | DRG 300 ==
LOC: JER 13:44 → JERBED 16:34 → J6S 10-01 20:05
PROVIDERS: ADMIT Internal Medicine; ATTEND Internal Medicine
DX: I82.413 Acute embolism and thrombosis of femoral vein, bilateral (principal); C83.30 Diffuse large B-cell lymphoma, unspecified site; N17.9 Acute kidney failure, unspecified; I10 Essential (primary) hypertension; E78.5 Hyperlipidemia, unspecified; E83.52 Hypercalcemia; F03.90 Unspecified dementia, unspecified severity, without behavioral disturbance, psychotic disturbance, mood disturbance, and anxiety; R55 Syncope and collapse
CPT/HCPCS: 36415; 71045-TC-FY; 73630-TC-LT; 80053; 81003; 82272; 82550; 83615; 83735; 84484; 84550; 85025; 85610; 85730; 86706; 87086; 87186; 87340; 87517; 93005; 93010; 99285-25; C9803; U0003; U0005

== ENCOUNTER → 2020-09-30 | Day surgery (SDC) | payer OTHER ==
[~2020-09-30] MED LIST changes: -BUPIVACAINE HCL/PF 0.75% 10 ML VIAL NR ONE; -IOHEXOL 180 MG/1 ML ML IJ ONE; -LIDOCAINE HCL 1% PRESERVATIVE FREE - 30ML VIAL IJ ONE; +MAGNESIUM 1GM/D5W - 1 GM/100 ML IVPB IVPB ONE; +SODIUM CHLORIDE 0.9%/KCL 20 MEQ/1,000 ML INFUS.BAG IV ONE
[2020-09-30 12:39] LABS: BASO % 0.3 % (0-2.0); EOS % 0.5 % (0-4.5); HEMATOCRIT 42.4 % (32.4-45.2); HEMOGLOBIN 13.9 GM/dL (10.7-15.3); LYMPH % 10.7 % (8-40); MCH 29.5 pg (25.7-33.7); MCHC 32.8 g/dl (32.0-36.0); MEAN CELL VOLUME 89.8 fl (80-96); MEAN PLT VOLUME 8.4 fl (7.5-11.1); MONO % 6.4 % (3.8-10.2); NEUT % 82.1 % (42.8-82.8); PLATELET COUNT 357 10^3/uL (134-434); RBC 4.72 M/mm3 (3.60-5.2); RDW 17.8 % (11.6-15.6); WHITE BLOOD COUNT 9.7 K/mm3 (4.0-10.0)
[2020-09-30 13:05] LABS: CALCIUM 10.2 mg/dL (8.5-10.1); MAGNESIUM 2.3 mg/dL (1.8-2.4)
[2020-09-30 13:06] LABS: BLOOD UREA NITROGEN 29.1 mg/dL (7-18)
[2020-09-30 13:08] LABS: BILIRUBIN,DIRECT 0.1 mg/dL (0.0-0.2); CREATININE 1.5 mg/dL (0.55-1.3); URIC ACID 3.8 mg/dL (2.6-7.2)
[2020-09-30 13:09] LABS: PHOSPHOROUS 2.7 mg/dL (2.5-4.9)
[2020-09-30 13:10] LABS: TOT PROT 6.7 g/dl (6.4-8.2)
[2020-09-30 13:11] LABS: BILIRUBIN,TOTAL 0.5 mg/dL (0.2-1)
[2020-09-30 13:18] LABS: ALBUMIN 3.4 g/dl (3.4-5.0)
== END | disposition home or self-care (01) ==
LOC: JONCNONCHE 11:59
PROVIDERS: ATTEND Internal Medicine Hematology & Oncology
DX: Z53.8 Procedure and treatment not carried out for other reasons (principal)
CPT/HCPCS: 36415; 80048; 80076; 83615; 83735; 84100; 84550; 85025; 93970-TC; 96365

== ENCOUNTER 2020-10-23 07:36 | Day surgery (SDC) | payer OTHER ==
[2020-10-23] MEDS ORDERED: D5-1/2NS+20 MEQ KCL - 20 MEQ/1,000 ML INFUS.BAG IV SCH (08:30)
[2020-10-23 17:44] VITALS: BP 126/58; PULSE 98; TEMP 98.9
== END 2020-10-23 17:00 | disposition home or self-care (01) ==
LOC: JONCNONCHE 07:36
PROVIDERS: ATTEND Internal Medicine Hematology & Oncology
PROC: 3E033GC Introduction of Other Therapeutic Substance into Peripheral Vein, Percutaneous Approach (ICD-10-PCS; principal; 2020-10-23)
DX: C83.30 Diffuse large B-cell lymphoma, unspecified site (principal); E83.52 Hypercalcemia
CPT/HCPCS: 96365; 96366

== ENCOUNTER 2020-11-20 11:25 | Day surgery (SDC) | payer OTHER ==
[2020-11-20] MEDS ORDERED: MAGNESIUM 1GM/D5W - 1 GM/100 ML IVPB IVPB ONE (12:15)
[2020-11-20] MEDS ORDERED: D5-1/2NS+20 MEQ KCL - 20 MEQ/1,000 ML INFUS.BAG IV ONE (12:15)
[2020-11-20 12:27] LABS: BASO % 0.9 % (0-2.0); EOS % 0.6 % (0-4.5); HEMATOCRIT 36.3 % (32.4-45.2); HEMOGLOBIN 11.8 GM/dL (10.7-15.3); LYMPH % 9.9 % (8-40); MCH 27.8 pg (25.7-33.7); MCHC 32.6 g/dl (32.0-36.0); MEAN CELL VOLUME 85.3 fl (80-96); MEAN PLT VOLUME 8.6 fl (7.5-11.1); MONO % 8.4 % (3.8-10.2); NEUT % 80.2 % (42.8-82.8); PLATELET COUNT 459 10^3/uL (134-434); RBC 4.26 M/mm3 (3.60-5.2); RDW 17.7 % (11.6-15.6); WHITE BLOOD COUNT 9.2 K/mm3 (4.0-10.0)
[2020-11-20 12:40] LABS: CALCIUM 8.8 mg/dL (8.5-10.1)
[2020-11-20 12:41] LABS: ALBUMIN 2.4 g/dl (3.4-5.0)
[2020-11-20 12:43] LABS: URIC ACID 2.3 mg/dL (2.6-7.2)
[2020-11-20 12:44] LABS: PHOSPHOROUS 3.2 mg/dL (2.5-4.9)
[2020-11-20 12:45] LABS: BILIRUBIN,TOTAL 0.6 mg/dL (0.2-1); TOT PROT 6.1 g/dl (6.4-8.2)
[2020-11-20 17:28] LABS: EPI CELLS 13 /uL (0-25.1); HYALINE CASTS 3 /uL (0-3.1); PH,URINE 5.5 (5.0-8.0); URINE APPEARANCE CLEAR; URINE BACTERIA 94 /uL (0-1359); URINE BILIRUBIN NEGATIVE (NEGATIVE); URINE COLOR YELLOW; URINE GLUCOSE (UA) NEGATIVE (NEGATIVE); URINE KETONE NEGATIVE (NEGATIVE); URINE LEUK ESTERASE 1+ (NEGATIVE); URINE NITRITE NEGATIVE (NEGATIVE); URINE PROTEIN NEGATIVE (NEGATIVE); URINE RBC 47 /uL (0-23.9); URINE WBC 30 /uL (0-25.8)
[2020-11-20 18:07] VITALS: BP 123/63; PULSE 104; TEMP 99.3
== END 2020-11-20 16:50 | disposition home or self-care (01) ==
LOC: JONCNONCHE 11:25
PROVIDERS: ATTEND Internal Medicine Hematology & Oncology
PROC: 3E033GC Introduction of Other Therapeutic Substance into Peripheral Vein, Percutaneous Approach (ICD-10-PCS; principal; 2020-11-20)
PROC: 3E033GC Introduction of Other Therapeutic Substance into Peripheral Vein, Percutaneous Approach (ICD-10-PCS; 2020-11-20)
DX: C83.30 Diffuse large B-cell lymphoma, unspecified site (principal); E83.52 Hypercalcemia; Z76.89 Persons encountering health services in other specified circumstances
CPT/HCPCS: 36415; 80053; 81003; 83615; 83735; 84100; 84550; 85025; 87086; 87186; 96365; 96368

== ENCOUNTER 2020-12-15 16:07 | Emergency (ER) | payer OTHER ==
[2020-12-15 16:57] VITALS: TEMP 98; BMI 22.2
[2020-12-15 18:37] LABS: EOS % 0.9 % (0-4.5); HEMATOCRIT 34.2 % (32.4-45.2); HEMOGLOBIN 11.5 GM/dL (10.7-15.3); LYMPH % 6.5 % (8-40); MCH 27.5 pg (25.7-33.7); MCHC 33.6 g/dl (32.0-36.0); MEAN CELL VOLUME 81.9 fl (80-96); MEAN PLT VOLUME 8.3 fl (7.5-11.1); MONO % 6.8 % (3.8-10.2); NEUT % 83.8 % (42.8-82.8); PLATELET COUNT 407 10^3/uL (134-434); RBC 4.18 M/mm3 (3.60-5.2); RDW 18.6 % (11.6-15.6); WHITE BLOOD COUNT 8.7 K/mm3 (4.0-10.0)
[2020-12-15 18:39] LABS: EPI CELLS 6 /uL (0-25.1); HYALINE CASTS 1 /uL (0-3.1); PH,URINE 6.5 (5.0-8.0); URINE APPEARANCE CLEAR; URINE BACTERIA 4 /uL (0-1359); URINE BILIRUBIN NEGATIVE (NEGATIVE); URINE COLOR YELLOW; URINE GLUCOSE (UA) NEGATIVE (NEGATIVE); URINE KETONE NEGATIVE (NEGATIVE); URINE LEUK ESTERASE NEGATIVE (NEGATIVE); URINE NITRITE NEGATIVE (NEGATIVE); URINE PROTEIN NEGATIVE (NEGATIVE); URINE RBC 15 /uL (0-23.9); URINE UROBILINOGEN 0.2 mg/dL (0.2-1.0); URINE WBC 10 /uL (0-25.8)
[2020-12-15 18:55] LABS: CALCIUM 12.1 mg/dL (8.5-10.1)
[2020-12-15 18:56] LABS: ALBUMIN 2.9 g/dl (3.4-5.0); BLOOD UREA NITROGEN 13.1 mg/dL (7-18)
[2020-12-15 18:59] LABS: CREATININE 1.2 mg/dL (0.55-1.3); PHOSPHOROUS 3.6 mg/dL (2.5-4.9)
[2020-12-15 19:00] LABS: BILIRUBIN,TOTAL 0.3 mg/dL (0.2-1); TOT PROT 6.3 g/dl (6.4-8.2)
[2020-12-15] MEDS ORDERED: SODIUM CHLORIDE 0.9% 500 ML INFUS.BAG IV ONE (19:35)
[2020-12-15 19:36] LABS: MAGNESIUM 2.2 mg/dL (1.8-2.4)
[2020-12-15] MEDS ORDERED: POLYETHYLENE GLYCOL (HEALTHYLAX) 3350 17 GM PACKET PO ONE (19:41)
[2020-12-15] MEDS ORDERED: LACTATED RINGERS SOLUTION 1000 ML INFUS.BAG IV ONE (21:51)
[2020-12-15 23:10] VITALS: BP 132/64; PULSE 92
== END 2020-12-15 23:12 | disposition home or self-care (01) ==
LOC: JER 16:07
DX: R73.9 Hyperglycemia, unspecified (principal)
CPT/HCPCS: 36415; 70450-TC; 71046-TC-FY; 80053; 81003; 83735; 84100; 85025; 93005; 93010; 99285-25

== ENCOUNTER 2020-12-16 17:57 | Inpatient (IN) | payer OTHER ==
[2020-12-17 00:14] LABS: BASO % 0.9 % (0-2.0); EOS % 1.3 % (0-4.5); HEMATOCRIT 30.4 % (32.4-45.2); HEMOGLOBIN 10.1 GM/dL (10.7-15.3); LYMPH % 11.5 % (8-40); MCH 27.2 pg (25.7-33.7); MCHC 33.2 g/dl (32.0-36.0); MEAN CELL VOLUME 81.8 fl (80-96); MEAN PLT VOLUME 7.5 fl (7.5-11.1); MONO % 13.2 % (3.8-10.2); NEUT % 73.1 % (42.8-82.8); PLATELET COUNT 344 10^3/uL (134-434); RBC 3.72 M/mm3 (3.60-5.2); RDW 18.7 % (11.6-15.6); WHITE BLOOD COUNT 6.4 K/mm3 (4.0-10.0)
[2020-12-17 00:33] LABS: CHLORIDE 106 mmol/L (98-107); SODIUM 140 mmol/L (136-145)
[2020-12-17 00:35] LABS: CALCIUM 10.4 mg/dL (8.5-10.1)
[2020-12-17 00:36] LABS: ALBUMIN 2.3 g/dl (3.4-5.0); ANION GAP 4 MMOL/L (8-16); BLOOD UREA NITROGEN 10.8 mg/dL (7-18); CO2 30 mmol/L (21-32); GLUCOSE,RANDOM 115 mg/dL (74-106)
[2020-12-17 00:39] LABS: CREATININE 1.1 mg/dL (0.55-1.3); SGOT/AST 19 U/L (15-37); SGPT/ALT 11 U/L (13-61)
[2020-12-17 00:40] LABS: BILIRUBIN,TOTAL 0.3 mg/dL (0.2-1)
[2020-12-17 00:41] LABS: TOT PROT 5.4 g/dl (6.4-8.2)
[2020-12-17 00:42] LABS: ALK PHOS 62 U/L (45-117)
[2020-12-17 00:44] LABS: N-TERMINAL BNP 737.7 pg/ml (5-450)
[2020-12-17] MEDS ORDERED: POTASSIUM CHLORIDE TABS 20 MEQ TABLET.ER (FP) PO ONE ×2 (14:45→14:53)
[2020-12-17] MEDS: SODIUM CHLORIDE 1,000 ML IV SCH (15:07)
[2020-12-17] MEDS: DOCUSATE SODIUM 100 MG CAPSULE (FP) PO SCH (23:31)
[2020-12-17] MEDS: ROSUVASTATIN CA 5 MG TABLET (FP) PO SCH (23:31)
[2020-12-17] MEDS: APIXABAN 5 MG TABLET PO SCH (23:31)
[2020-12-17 23:58] VITALS: BMI 22.3
[2020-12-18] MEDS: SODIUM CHLORIDE 1,000 ML IV SCH ×2 (00:14→19:17)
[2020-12-18 02:21] LABS: EPI CELLS 9 /uL (0-25.1); HYALINE CASTS 1 /uL (0-3.1); PH,URINE 5.5 (5.0-8.0); URINE APPEARANCE CLEAR; URINE BACTERIA 15 /uL (0-1359); URINE BILIRUBIN NEGATIVE (NEGATIVE); URINE COLOR YELLOW; URINE GLUCOSE (UA) NEGATIVE (NEGATIVE); URINE KETONE NEGATIVE (NEGATIVE); URINE LEUK ESTERASE 1+ (NEGATIVE); URINE NITRITE NEGATIVE (NEGATIVE); URINE PROTEIN TRACE (NEGATIVE); URINE RBC 30 /uL (0-23.9); URINE WBC 48 /uL (0-25.8)
[2020-12-18 02:45] LABS: URINE CRYSTALS RARE /hpf
[2020-12-18] MEDS ORDERED: PT OWN MED DRAWER 7, Y5N ONE (08:51)
[2020-12-18 08:57] LABS: BASO % 0.7 % (0-2.0); EOS % 0.9 % (0-4.5); HEMATOCRIT 32.1 % (32.4-45.2); HEMOGLOBIN 10.5 GM/dL (10.7-15.3); LYMPH % 10.1 % (8-40); MCH 27.1 pg (25.7-33.7); MCHC 32.7 g/dl (32.0-36.0); MEAN CELL VOLUME 82.9 fl (80-96); MEAN PLT VOLUME 8.1 fl (7.5-11.1); MONO % 10.3 % (3.8-10.2); PLATELET COUNT 336 10^3/uL (134-434); RBC 3.87 M/mm3 (3.60-5.2); RDW 18.8 % (11.6-15.6); WHITE BLOOD COUNT 6.6 K/mm3 (4.0-10.0)
[2020-12-18 09:34] LABS: CALCIUM 9.5 mg/dL (8.5-10.1)
[2020-12-18 09:35] LABS: ALBUMIN 2.1 g/dl (3.4-5.0); BLOOD UREA NITROGEN 8.3 mg/dL (7-18)
[2020-12-18 09:38] LABS: CREATININE 0.8 mg/dL (0.55-1.3)
[2020-12-18] MEDS: APIXABAN 5 MG TABLET PO SCH ×2 (09:38→21:49)
[2020-12-18] MEDS: DOCUSATE SODIUM 100 MG CAPSULE (FP) PO SCH ×2 (09:38→21:49)
[2020-12-18] MEDS: HYDROCHLOROTHIAZIDE 12.5 MG CAPSULE (FP) PO SCH (09:38)
[2020-12-18] MEDS: ALLOPURINOL 300 MG TABLET (FP) PO SCH (09:38)
[2020-12-18 09:39] LABS: BILIRUBIN,TOTAL 0.3 mg/dL (0.2-1); TOT PROT 5.1 g/dl (6.4-8.2)
[2020-12-18] MEDS: ROSUVASTATIN CA 5 MG TABLET (FP) PO SCH (21:49)
[2020-12-18] MEDS ORDERED: ACETAMINOPHEN 325 MG TABLET (FP) PO PRN (22:26)
[2020-12-19] MEDS ORDERED: ACETAMINOPHEN 325 MG TABLET (FP) PO PRN (02:26)
[2020-12-19] MEDS: SODIUM CHLORIDE 1,000 ML IV SCH ×2 (04:40→14:39)
[2020-12-19] MEDS ORDERED: ZOLEDRONIC ACID 3 MG in SODIUM CHLORIDE 100 ML IVPB ONE (10:00)
[2020-12-19] MEDS: ALLOPURINOL 300 MG TABLET (FP) PO SCH (10:21)
[2020-12-19] MEDS: APIXABAN 5 MG TABLET PO SCH ×2 (10:21→21:33)
[2020-12-19] MEDS: DOCUSATE SODIUM 100 MG CAPSULE (FP) PO SCH ×2 (10:21→21:33)
[2020-12-19] MEDS: HYDROCHLOROTHIAZIDE 12.5 MG CAPSULE (FP) PO SCH (10:21)
[2020-12-19] MEDS ORDERED: PT OWN MED DRAWER 7, Y5N ONE (10:28)
[2020-12-19 10:38] LABS: EOS % 0.6 % (0-4.5); HEMATOCRIT 33.4 % (32.4-45.2); HEMOGLOBIN 10.8 GM/dL (10.7-15.3); LYMPH % 9.6 % (8-40); MCH 26.9 pg (25.7-33.7); MCHC 32.4 g/dl (32.0-36.0); MEAN PLT VOLUME 8.1 fl (7.5-11.1); MONO % 8.9 % (3.8-10.2); NEUT % 79.9 % (42.8-82.8); PLATELET COUNT 354 10^3/uL (134-434); RBC 4.03 M/mm3 (3.60-5.2); RDW 18.6 % (11.6-15.6); WHITE BLOOD COUNT 6.6 K/mm3 (4.0-10.0)
[2020-12-19 10:48] LABS: ALBUMIN 2.2 g/dl (3.4-5.0); BLOOD UREA NITROGEN 6.8 mg/dL (7-18); CALCIUM 9.1 mg/dL (8.5-10.1)
[2020-12-19 10:52] LABS: CREATININE 0.8 mg/dL (0.55-1.3)
[2020-12-19 10:53] LABS: BILIRUBIN,TOTAL 0.5 mg/dL (0.2-1); TOT PROT 5.2 g/dl (6.4-8.2)
[2020-12-19] MEDS ORDERED: POTASSIUM CHLORIDE TABS 20 MEQ TABLET.ER (FP) PO ONE (16:27)
[2020-12-19] MEDS: ROSUVASTATIN CA 5 MG TABLET (FP) PO SCH (21:33)
[2020-12-20 09:12] LABS: CALCIUM 9.1 mg/dL (8.5-10.1)
[2020-12-20 09:13] LABS: ALBUMIN 2.1 g/dl (3.4-5.0); BLOOD UREA NITROGEN 6.8 mg/dL (7-18)
[2020-12-20 09:16] LABS: CREATININE 0.8 mg/dL (0.55-1.3)
[2020-12-20 09:18] LABS: BILIRUBIN,TOTAL 0.4 mg/dL (0.2-1); TOT PROT 5.2 g/dl (6.4-8.2)
[2020-12-20] MEDS: HYDROCHLOROTHIAZIDE 12.5 MG CAPSULE (FP) PO SCH (10:09)
[2020-12-20] MEDS: DOCUSATE SODIUM 100 MG CAPSULE (FP) PO SCH ×2 (10:09→21:39)
[2020-12-20] MEDS: ALLOPURINOL 300 MG TABLET (FP) PO SCH (10:09)
[2020-12-20] MEDS: APIXABAN 5 MG TABLET PO SCH ×2 (10:09→21:39)
[2020-12-20] MEDS: SODIUM CHLORIDE 1,000 ML IV SCH (16:57)
[2020-12-20] MEDS: ROSUVASTATIN CA 5 MG TABLET (FP) PO SCH (21:39)
[2020-12-21] MEDS: SODIUM CHLORIDE 1,000 ML IV SCH ×3 (04:35→23:14)
[2020-12-21] MEDS: DOCUSATE SODIUM 100 MG CAPSULE (FP) PO SCH ×2 (10:50→21:13)
[2020-12-21] MEDS: ALLOPURINOL 300 MG TABLET (FP) PO SCH (10:50)
[2020-12-21] MEDS: HYDROCHLOROTHIAZIDE 12.5 MG CAPSULE (FP) PO SCH (10:51)
[2020-12-21] MEDS: APIXABAN 5 MG TABLET PO SCH ×2 (10:51→21:13)
[2020-12-21] MEDS: ROSUVASTATIN CA 5 MG TABLET (FP) PO SCH (21:13)
[2020-12-22 09:32] LABS: BASO % 0.6 % (0-2.0); EOS % 0.5 % (0-4.5); HEMATOCRIT 32.9 % (32.4-45.2); HEMOGLOBIN 10.7 GM/dL (10.7-15.3); LYMPH % 9.7 % (8-40); MCH 27.2 pg (25.7-33.7); MCHC 32.6 g/dl (32.0-36.0); MEAN CELL VOLUME 83.4 fl (80-96); MEAN PLT VOLUME 8.3 fl (7.5-11.1); MONO % 8.6 % (3.8-10.2); NEUT % 80.6 % (42.8-82.8); PLATELET COUNT 364 10^3/uL (134-434); RBC 3.94 M/mm3 (3.60-5.2); RDW 18.1 % (11.6-15.6); WHITE BLOOD COUNT 6.3 K/mm3 (4.0-10.0)
[2020-12-22 09:57] LABS: CHLORIDE 116 mmol/L (98-107); SODIUM 146 mmol/L (136-145)
[2020-12-22 10:05] LABS: BLOOD UREA NITROGEN 5.2 mg/dL (7-18); CO2 25 mmol/L (21-32); GLUCOSE,RANDOM 73 mg/dL (74-106)
[2020-12-22 10:07] LABS: CREATININE 0.6 mg/dL (0.55-1.3)
[2020-12-22 10:08] LABS: SGOT/AST 19 U/L (15-37); SGPT/ALT 10 U/L (13-61)
[2020-12-22 10:09] LABS: BILIRUBIN,TOTAL 0.4 mg/dL (0.2-1); TOT PROT 4.3 g/dl (6.4-8.2)
[2020-12-22 10:10] LABS: ALK PHOS 57 U/L (45-117)
[2020-12-22 10:16] LABS: ALBUMIN 1.6 g/dl (3.4-5.0); ANION GAP 5 MMOL/L (8-16)
[2020-12-22] MEDS: ALLOPURINOL 300 MG TABLET (FP) PO SCH (11:34)
[2020-12-22] MEDS: DOCUSATE SODIUM 100 MG CAPSULE (FP) PO SCH ×2 (11:34→22:09)
[2020-12-22] MEDS: HYDROCHLOROTHIAZIDE 12.5 MG CAPSULE (FP) PO SCH (11:34)
[2020-12-22] MEDS: APIXABAN 5 MG TABLET PO SCH ×2 (11:35→22:09)
[2020-12-22] MEDS: SODIUM CHLORIDE 1,000 ML IV SCH (13:10)
[2020-12-22] MEDS: KCL 10 MEQ IVPB 10 MEQ/100 ML INFUS.BAG IVPB SCH ×3 (13:16→17:43)
[2020-12-22] MEDS: POTASSIUM CHLORIDE TABS 20 MEQ TABLET.ER (FP) PO SCH (13:17)
[2020-12-22] MEDS: ROSUVASTATIN CA 5 MG TABLET (FP) PO SCH (22:09)
[2020-12-23 08:46] LABS: BASO % 0.5 % (0-2.0); HEMATOCRIT 32.6 % (32.4-45.2); HEMOGLOBIN 10.7 GM/dL (10.7-15.3); LYMPH % 10.5 % (8-40); MCH 27.2 pg (25.7-33.7); MCHC 32.7 g/dl (32.0-36.0); MEAN CELL VOLUME 82.9 fl (80-96); MEAN PLT VOLUME 8.5 fl (7.5-11.1); MONO % 12.5 % (3.8-10.2); NEUT % 75.5 % (42.8-82.8); PLATELET COUNT 366 10^3/uL (134-434); RBC 3.92 M/mm3 (3.60-5.2); RDW 18.2 % (11.6-15.6); WHITE BLOOD COUNT 6.8 K/mm3 (4.0-10.0)
[2020-12-23 09:34] LABS: BLOOD UREA NITROGEN 6.1 mg/dL (7-18)
[2020-12-23 09:37] LABS: CREATININE 0.8 mg/dL (0.55-1.3)
[2020-12-23 09:38] LABS: BILIRUBIN,TOTAL 0.4 mg/dL (0.2-1)
[2020-12-23 09:39] LABS: CALCIUM 9.3 mg/dL (8.5-10.1)
[2020-12-23] MEDS: DOCUSATE SODIUM 100 MG CAPSULE (FP) PO SCH (10:51)
[2020-12-23] MEDS: POTASSIUM CHLORIDE TABS 20 MEQ TABLET.ER (FP) PO SCH (10:51)
[2020-12-23] MEDS: APIXABAN 5 MG TABLET PO SCH (10:52)
[2020-12-23] MEDS: ALLOPURINOL 300 MG TABLET (FP) PO SCH (10:54)
[2020-12-23 15:26] VITALS: BP 126/61; PULSE 93; TEMP 98.5
== END 2020-12-23 17:11 | disposition home health service (06) | DRG 840 ==
LOC: JER 17:57 → INTOOBSV 12-17 03:13 → UNDOADMOB 12-17 03:13 → JERBED 12-17 03:13 → J5S 12-17 21:40 → JERBED 12-18 10:23 → J5S 12-18 10:23 → OBSVTOIN 12-20 10:43 → J5S 12-20 13:18
PROVIDERS: ADMIT Internal Medicine; ATTEND Internal Medicine
DX: C85.10 Unspecified B-cell lymphoma, unspecified site (principal); G92.8 Other toxic encephalopathy; R44.3 Hallucinations, unspecified; E83.52 Hypercalcemia; F03.90 Unspecified dementia, unspecified severity, without behavioral disturbance, psychotic disturbance, mood disturbance, and anxiety; I10 Essential (primary) hypertension; E78.5 Hyperlipidemia, unspecified; R41.82 Altered mental status, unspecified; Z66 Do not resuscitate
CPT/HCPCS: 36415; 70450-TC; 71045-TC-FY; 80053; 81003; 83735; 83880; 84484; 85025; 87086; 93005; 93010; 97116-GP; 97162-GP; 99285-25; C9803; G0378; J3489; U0003; U0005